=== PATIENT | male | born 1945 | race Caucasian/White ===

== ENCOUNTER 2022-01-26 09:49 | Day surgery (SDC) | payer OTHER ==
--- NOTE | 2022-01-22 15:25 | RAD REPORT ---
EXAM DESCRIPTION: RAD - Chest Pa And Lat (2 Views) - 01/22/2022 3:17 pm CLINICAL HISTORY: pre op pending TURBT Chest pain. COMPARISON: Chest Pa And Lat (2 Views) dated 02/20/2020; Chest Pa And Lat (2 Views) dated 12/06/2016; C hest Pa And Lat (2 Views) dated 03/15/2016 FINDINGS: Right hemidiaphragm is elevated, chronic. Mild atelectasis seen in the right lung base. Th e lungs are otherwise grossly clear. The heart is normal in size. Sternotomy wires.
[2022-01-22 16:21] LABS: Absolute Lymphocytes (CBC) 1.5 K/uL (0.7-4.9); Hematocrit 47.5 % (39.6-49.0); MPV 10.3 fL (7.6-11.3); RBC Red Blood Cell Count 5.11 M/uL (4.33-5.43)
[2022-01-22 16:23] LABS: Protime INR 0.9
[2022-01-22 16:29] LABS: Potassium 4.4 mmol/L (3.5-5.1)
[~2022-01-26 09:49] MED LIST: GEMCITABINE HCL 26.3 ML IVPB ONE
[2022-01-26] MEDS ORDERED: CEFAZOLIN SODIUM 1 GM/VIAL ONE (10:23)
[2022-01-26] MEDS ORDERED: Ringers Lactate 1,000 ML IV ONE (10:23)
[2022-01-26] MEDS ORDERED: ACETAMINOPHEN 500 MG TAB ONE (10:45)
[2022-01-26] MEDS ORDERED: propofoL 200 MG/20 ML VIAL IV ONE (11:57)
[2022-01-26] MEDS ORDERED: FENTANYL CITR 100 MCG/2 ML ONE (11:57)
[2022-01-26] MEDS ORDERED: ONDANSETRON 4 MG/2 ML VIAL ONE (11:59)
[2022-01-26] MEDS ORDERED: LIDOCAINE 1% MPF 5 ML VIAL ONE (11:59)
[2022-01-26] MEDS ORDERED: GLYCOPYRROLATE 0.2 MG/ML SYR ONE (13:10)
[2022-01-26] MEDS ORDERED: EPHEDRINE SULF 50 MG/ML VIAL ONE (13:10)
[2022-01-26] MEDS ORDERED: OPIUM/BELLADONNA SUPPOS (30-16.2 MG) PR ONE (13:49)
[2022-01-26] MEDS ORDERED: TRAMADOL 37.5mg/APAP 325mg PER TAB PO ONE (13:49)
[2022-01-26] MEDS: LIDOCAINE JELLY 2% 5 ML SYRINGE TOP ONE ×2 (14:52→15:29)
[2022-01-26] MEDS ORDERED: LIDOCAINE JELLY 2% 5 ML SYRINGE TOP ONE (15:29)
[2022-01-26 16:00] VITALS: BP 159/64; TEMP 96.4; O2SAT 95
== END 2022-01-26 16:42 | disposition home or self-care (01) ==
LOC: OR 09:49
PROVIDERS: ATTEND Urology
PROC: 3E0K705 Introduction of Other Antineoplastic into Genitourinary Tract, Via Natural or Artificial Opening (ICD-10-PCS; 2022-01-26)
PROC: 0TBB8ZX Excision of Bladder, Via Natural or Artificial Opening Endoscopic, Diagnostic (ICD-10-PCS; principal; 2022-01-26 11:45)
DX: C67.9 Malignant neoplasm of bladder, unspecified (principal); R31.0 Gross hematuria; N40.1 Benign prostatic hyperplasia with lower urinary tract symptoms; Z85.51 Personal history of malignant neoplasm of bladder; I10 Essential (primary) hypertension; N18.9 Chronic kidney disease, unspecified; Z20.822 Contact with and (suspected) exposure to COVID-19
CPT/HCPCS: 87088; 85025; 87086; 80048; 36415; 85610; 88307; 71046; 52234; 51720; U0003; J2704; J3010; J9201 ×2; J7120; J2405; J0690; 88305

== ENCOUNTER 2023-03-22 08:16 | Day surgery (SDC) | payer OTHER ==
--- NOTE | 2023-03-17 14:52 | RAD REPORT ---
EXAM DESCRIPTION: RAD - Chest Pa And Lat (2 Views) - 03/17/2023 2:38 pm CLINICAL HISTORY: pre op for surgery, htn, quadruple heart bypass COMPARISON: Chest Pa And Lat (2 Views) dated 01/22/2022; Chest Pa And Lat (2 Views) dated 02/20/2020; Ch est Pa And Lat (2 Views) dated 12/06/2016; Chest Pa And Lat (2 Views) dated 03/15/2016 FINDINGS: Lines: None. Lungs: No evidence of edema or pneumonia. Chronically elevated right hemidiaphragm. Pleural: No significant pleural effusions or pneumothorax. Cardiac: The heart size is within normal limits. Mediastinum: Within normal limits. Bones: No acute fractures. Sternotomy. Other: None IMPRESSION: Chronic elevation of the right hemidiaphragm. No new or acute process otherwise identifi ed.
[2023-03-17 15:47] LABS: Hematocrit 48.3 % (39.6-49.0); Lymphocytes % 26.7 % (15.3-44.8); MCV 93.2 fL (80-100); MPV 10.2 fL (7.6-11.3); Platelets 152 thou/uL (152-406); RBC Red Blood Cell Count 5.18 M/uL (4.33-5.43)
[2023-03-17 16:11] LABS: Albumin 3.9 g/dL (3.4-5.0); Bilirubin Total 0.5 mg/dL (0.2-1.0); Potassium 4.6 mEq/L (3.5-5.1); Protein, Total 7.6 g/dL (6.4-8.2)
[2023-03-17 16:51] LABS: Protime INR 0.8
--- NOTE | 2023-03-18 13:26 | EKG ---
Test Date: 2023-03-17 Test Time: 14:41:44 Clerk Analyst: KRYSTIN MEASUREMENT RESULTS: Intervals: Rate: 80 CO: 266 QRSD: 84 QT: 370 QTc: 426 [place]: P: CO: 266 QRS: 9 T: 81 INTERPRETIVE STATEMENTS: Sinus rhythm with 1st degree AV block Otherwise normal ECG Compared to ECG 02/20/2020 10:58:00 First degree AV block now present Atrial premature complex(es) no longer present Electronically Signed On 03-18-23 13:24:31 CDT by Jake Lockett
[2023-03-22] MEDS ORDERED: Ringers Lactate 1,000 ML IV ONE ×2 (08:53→14:17)
[2023-03-22] MEDS ORDERED: AMPICILLIN SODIUM 2 GM/VIAL VIAL ONE (09:03)
[2023-03-22] MEDS ORDERED: GENTAMICIN 100 MG/100 ML BAG 100 ML IV ONE (09:05)
[2023-03-22] MEDS ORDERED: FENTANYL CITR 100 MCG/2 ML ONE ×2 (10:36→12:00)
[2023-03-22] MEDS ORDERED: LIDOCAINE 1% MPF 5 ML VIAL ONE (10:36)
[2023-03-22] MEDS ORDERED: propofoL 200 MG/20 ML VIAL IV ONE (10:36)
[2023-03-22] MEDS ORDERED: ROCURONIUM 50 MG/5 ML VIAL IV ONE (10:38)
[2023-03-22] MEDS ORDERED: EPHEDRINE SULF 50 MG/ML VIAL ONE (11:16)
[2023-03-22] MEDS ORDERED: dexAMETHasone 10 MG/ML VIAL ONE (11:47)
[2023-03-22] MEDS ORDERED: ONDANSETRON 4 MG/2 ML VIAL ONE (11:47)
[2023-03-22] MEDS ORDERED: GLYCOPYRROLATE 0.2 MG/ML SYR ONE ×2 (12:18→13:42)
[2023-03-22] MEDS ORDERED: NEOSTIGMINE 1 MG/ML -10 ML VIAL ONE (12:19)
[2023-03-22] MEDS ORDERED: NS 0.9% VIAL 10 ML ONE (13:42)
[2023-03-22] MEDS ORDERED: SUGAMMADEX SODIUM 200 MG/2 ML VIAL IV ONE (13:49)
[2023-03-22] MEDS ORDERED: TRAMADOL 37.5mg/APAP 325mg PER TAB PO ONE (14:06)
[2023-03-22] MEDS ORDERED: PHENAZOPYRIDINE 100MG TAB PO PRN (14:07)
[2023-03-22 14:43] VITALS: BP 158/77; TEMP 97.1; O2SAT 97
[2023-03-22] MEDS ORDERED: PHENAZOPYRIDINE 100MG TAB PO ONE (15:01)
--- NOTE | 2023-03-22 18:57 | OP ---
Surgeon: PEDRO PABLO BEAVER Preoperative Diagnoses: 1.Erythematous bladder lesion. 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 3.BPH with lower urinary tract obstruction and symptoms. Postoperative Diagnoses: 1.Erythematous bladder lesion. 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 3.BPH with lower urinary tract obstruction and symptoms. Principal Procedures: 1.Cystoscopy with bladder biopsies and fulguration. 2.Bipolar transurethral resection of the prostate. Indication For Procedure: Mr. 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 Subsequent followup revealed the presence of an erythematous patch, which was biopsied and revealed CIS. He received an induction course of BCG and presents today for restaging of his bladder cancer. He also had significant obstructive LUTS due to BPH refractory to Flomax plus finasteride that he pro s been on for 5-6 years. As a result, he wished to proceed with surgical management of his obstructi on if possible, and we agreed that if the frozen section pathology of his bladder biopsy was nonsuspi cious, we would proceed with the TURP, as the area of erythema noted in the bladder was in the region of prior biopsy/resection site scar where inflammatory changes frequently seen. Procedure In Detail: The patient was consented in the preoperative holding area before being transfe rred to the operative suite where general anesthesia was induced. He was given ampicillin 2 g and ge ntamicin 100 mg IV antimicrobial prophylaxis and pneumo boots were provided for DVT prophylaxis. He was placed in the lithotomy position, padded and secured to the table appropriately after general ane sthesia was induced. His genitalia were prepped with Hibiclens and he was draped in standard fashion . The case was begun using a 22-Belgian rigid cystoscope to traverse the urethra and into the bladder with ease. The significant extended prostatic urethral length as well as interdigitating lateral lo bar hypertrophy was again noted. Within the bladder, no other papillary mucosal lesions, foreign bod ies or stones were noted, and the area of erythema previously observed in the right lateral wall just lateral to the right ureteral orifice where a prior biopsy/resection had been undertaken was still n oted to be somewhat erythematous. As a result, I used cold cup biopsy forceps and sterile water to b iopsy a portion of that erythematous tissue and sent it for frozen section analysis. I then biopsied additional areas essentially resecting the erythematous patch observed and sent that separately as t issue for permanent analysis in formalin. We then awaited the results of the frozen section patholog y with the caveat of them being a very limited analysis since frozen section of the bladder biopsies are not typically performed, with the disclaimer of the potential for missed diagnosis in this case, once the frozen section pathology returned negative for suspicious signs of malignancy though a great degree of artifact was seen secondary to the frozen section methodology, I then proceeded with bipol ar TURP. As a result, I utilized urethral sounds to dilate his meatus and fossa navicularis to 28-Belgian. I t hen placed the 26-Belgian bipolar resectoscope with the visual obturator through his urethra and into his bladder with ease. I then began resection of the prostatic urethra starting with some scar tissu e at the bladder neck observed from prior resection and then continued the resection of the significa nt residual adenoma existing from the apex all the way essentially to the bladder neck interdigitatin g throughout. I thus resected the median bar down to the level of the verumontanum and continued the resection initially with the left lateral lobe at the bladder neck region and mid gland region exten ding to the anterior zone of the prostate at the bladder neck and mid zone region. I similarly resec radha the similar component on the right side at the bladder neck in mid gland region extending from po sterior to anterior. I then continued the resection from the mid gland into the apex on the left felicia e and then similarly on the right side from posterior to anterior. Continued resection was performed to remove the interdigitating adenoma until it was no longer interdigitating particularly at the ape x. I then continued the resection of the prostatic fossa in the mid gland in order to ensure a widel y patent channel evident from the verumontanum into the bladder neck. After extensive resection was performed with fulguration at multiple steps along the way because the patient was somewhat oozy due to significant inflammatory change observed within his prostate and some areas of comedo-necrosis or potentially microabscesses, which I unroofed, I ensured to Ellik evacuate all prostate chips from wit hin his bladder or remove them under direct vision. I then resected additionally with the bladder co mpletely decompressed and the prostate fossa collapsed in order to ensure lack of significant residua l adenoma. Once a nice continuous channel was observed, the bladder completely decompressed and the prostatic fossa was completely hemostatic with the bladder decompressed and no fluid inflow, I then e nsured the ureteral orifices were intact, which they were, and that all prostate chips had been remov ed before then back-filling his bladder and removing the resectoscope to ensure no chips remained wit hin the bulbar and pendulous urethra. Once the scope was removed, I then utilized a catheter guide t o pass a 24-Belgian 3-way Zimmer catheter with ease into his bladder, and I placed 45 cc of sterile valentin er in the balloon. The patient was taken out of the lithotomy position, and the catheter was placed to moderate traction and very slow drip CBI with normal saline was initiated and the efflux of urine was completely clear. Of note, I irrigated the catheter before connecting it to CBI to ensure no sig nificant bleeding or tissue left within his bladder, and there was none. As a result, the patient wa s then awakened from general anesthesia, transferred to a stretcher, and then transferred to the [facility] very room in good condition. Complications: None. Discharge Disposition: I would like for him to keep the urethral Zimmer catheter through the weekend and he may undergo a voiding trial on Tuesday in the office once I am back in town. Of note, there w as a bit of a trough that was created posteriorly that may make placement of a standard straight uret hral Zimmer catheter difficult; hence, my use of a catheter guide earlier. As a result, if he fails t he voiding trial, he would require placement of at least a 20-Belgian coude tipped catheter to ensure to navigate that live appropriately. Alternatively, he may require cystoscopy and catheter placement over a wire. Subsequent followup should then be established with me in about 1-2 weeks' time to dis cuss the results of the pathology of the biopsy and prostate chips. WR/MODL Voice ID: [id number] Report ID: [id number]
== END 2023-03-22 15:57 | disposition home or self-care (01) ==
LOC: OR 08:16
PROVIDERS: ATTEND Urology
PROC: 0TBB8ZX Excision of Bladder, Via Natural or Artificial Opening Endoscopic, Diagnostic (ICD-10-PCS; 2023-03-22)
PROC: 0VT08ZZ Resection of Prostate, Via Natural or Artificial Opening Endoscopic (ICD-10-PCS; principal; 2023-03-22 10:00)
DX: N32.9 Bladder disorder, unspecified (principal); D09.0 Carcinoma in situ of bladder; N40.1 Benign prostatic hyperplasia with lower urinary tract symptoms
CPT/HCPCS: 93005; 87088; 85025; 87086; 36415; 85610; 88331; 88305 ×2; 80053; 71046; 52601; 52204; A4216; J1580; J2704; J2710; J2001; J3010 ×2; J1100; J2405; J0290; J7120 ×2

== ENCOUNTER 2024-07-17 08:41 | Day surgery (SDC) | payer OTHER ==
--- NOTE | 2024-07-12 12:03 | RAD REPORT ---
EXAMINATION: TWO VIEW CHEST XR CLINICAL INDICATION: Male, 79 years old. [facility] pre op for day surgery. Hypertension. Sequelae of coronary bypass TECHNIQUE: 2 view radiographs of the chest were performed. COMPARISON: 03/17/2023 FINDINGS: The lungs again show right basilar opacification with right hemidiaphragm elevation, findings which m ay relate to atelectasis, with or without a chronic right subpulmonic effusion. No pneumothorax or sizable effusion. The heart is normal in size. Mediastinal contours are unchanged, with sequelae of C ABG. IMPRESSION: No acute findings. Stable findings as above.
[2024-07-12 12:10] LABS: PT Prothrombin Time 9.8 SECONDS (9.4-12.5); Protime INR 0.87
[2024-07-12 12:17] LABS: Absolute Eosinophils 0.2 K/uL (0-0.5); Absolute Lymphocytes (CBC) 1.3 K/uL (0.7-4.9); Absolute Monocytes 0.7 K/uL (0.1-1.3); Absolute Neutrophil 4.8 K/uL (1.8-8.0); Basophils % 0.4 % (0-1.3); Eosinophils % 3.1 % (0-4.4); Hematocrit 46.7 % (39.6-49.0); Hemoglobin 15.2 g/dL (13.6-17.9); Lymphocytes % 18.9 % (15.3-44.8); MCH 31.4 pg (27.0-35.0); MCHC 32.5 g/dL (32.0-36.0); MCV 96.5 fL (80-100); MPV 11.1 fL (7.6-11.3); Monocytes % 10.1 % (3.3-12.3); Neutrophils % 67.5 % (41.7-73.7); Platelets 165 thou/uL (152-406); RBC Red Blood Cell Count 4.84 M/uL (4.33-5.43); Red Cell Distribution Width 13.8 % (12.1-15.2)
[2024-07-12 12:20] LABS: Anion Gap 9.4 mEq/L (5.0-15.0); Potassium 4.4 mEq/L (3.5-5.1)
--- NOTE | 2024-07-16 12:09 | EKG ---
Test Date: 2024-07-12 Test Time: 12:20:38 Window Tinter: EULOGIO MEASUREMENT RESULTS: Intervals: Rate: 66 SD: 224 QRSD: 84 QT: 406 QTc: 425 [place]: P: SD: 224 QRS: 11 T: 95 INTERPRETIVE STATEMENTS: Sinus rhythm with 1st degree AV block Nonspecific T wave abnormality Abnormal ECG Compared to ECG 03/17/2023 14:41:44 T-wave abnormality now present Electronically Signed On 07-16-24 12:03:32 GREEN BELT by Ovidio Moore
[2024-07-17] MEDS: Ringers Lactate 1,000 ML IV ONE (09:25)
[2024-07-17] MEDS ORDERED: ONDANSETRON 4 MG/2 ML VIAL ONE (10:52)
[2024-07-17] MEDS ORDERED: FENTANYL CITR 100 MCG/2 ML ONE (10:52)
[2024-07-17] MEDS ORDERED: propofoL 200 MG/20 ML VIAL IV ONE (10:52)
[2024-07-17] MEDS ORDERED: SUGAMMADEX SODIUM 200 MG/2 ML VIAL IV ONE (11:14)
[2024-07-17] MEDS ORDERED: ROCURONIUM 50 MG/5 ML VIAL IV ONE (11:30)
[2024-07-17] MEDS ORDERED: GLYCOPYRROLATE 0.2 MG/ML SYR ONE (11:57)
[2024-07-17] MEDS: Gentamicin Inj 240 MG in NA CHLORIDE 0.9% 100 ML IV ONE (11:58)
[2024-07-17] MEDS: AMPICILLIN SODIUM 2 GM/VIAL VIAL ONE (12:02)
[2024-07-17] MEDS ORDERED: EPHEDRINE SULF 50 MG/ML VIAL ONE (12:09)
[2024-07-17] MEDS: TRAMADOL 37.5mg/APAP 325mg PER TAB PO ONE (13:03)
--- NOTE | 2024-07-17 13:19 | P.OP ---
Date of Service: 07/17/24 Preoperative diagnoses: Bladder lesion History of CIS of the bladder Post induction BCG on maintenance Left extratesticular/epididymal mass Postoperative diagnoses: Bladder lesion History of CIS of the bladder Post induction BCG on maintenance Left extratesticular/epididymal mass Principal procedures: Cystoscopy with bladder biopsies and fulguration Scrotal examination Indication for procedure: 79-year-old gentleman with history of subtle erythematous patch of the bladder, who underwent clinic based biopsy and fulguration, which revealed CIS of the bladder. He has subsequently undergone an induction course of BCG, which he tolerated well, and he continues on maintenance therapy. Upper tract imaging has been unremarkable and voided cytology negative for malignant cells. However, in the region of prior resection/biopsies, there was an area of subtle mucosal change at the periphery, slightly suspicious. Procedure note: The patient was consented in the preoperative holding area before being transferred to the operative suite where general anesthesia was induced. He was given ampicillin 2 g and gentamicin 240 mg IV antimicrobial prophylaxis, and pneumoboots were provided for DVT prophylaxis. He was placed in the lithotomy position, padded and secured to the table appropriately. His genitalia was prepped with Hibiclens and he was draped in standard fashion. The case was begun using a 22 Armenian rigid cystoscope to traverse the urethra and into the bladder with ease. The bladder was surveyed in its entirety. No papillary mucosal lesions, foreign bodies, or stones were noted throughout. In the region of the right lateral wall where prior scar from prior resections was observed, at the periphery of the scar, there was subtle mucosal change that was slightly suspicious. As a result, I utilized cold cup biopsy forceps to take quadrant samples of the suspicious mucosa around the periphery of the scarred tissue lateral to the right ureteral orifice. I then utilized a cold cup biopsy forcep and sterile water to fulgurate the base of the biopsy sites with a cautery setting of 30. I did this and then decompressed his bladder to ensure adequacy of hemostasis further fulgurating as necessary. I then resurveyed the bladder for any sign of subtle mucosal change that would merit a biopsy before ulti mately decompressing his bladder and removing the cystoscope. He was then taken out of the lithotomy position, awakened from general anesthesia, transferred to a stretcher, and then transferred to the recovery room in good condition. Examination: Patient with known extratesticular epididymal mass observed on ultrasound. He felt that he could no longer appreciate the mass lesion, but I still appreciated at present within the tail of the epididymis on the left measuring approximately 2.5 cm in diameter and firm. The testis itself was uninvolved, but there was a cyst also palpable within the epididymis. Complications: None Discharge disposition: Follow-up should be established in about 1 to 2 weeks time to discuss the results of the pathology and next steps in management. He is scheduled for ultrasound repeat of his scrotum in August to reevaluate the left epididymal tail lesion persistently appreciable. I did consult with his daughters who had several questions in the waiting room about both his diagnosis of CIS, the BCG immunotherapy provided, and the methodology for today's operative evaluation as well as reevaluation of the left hemiscrotal lesion. I explained that for a man his age, the likelihood of any aggressive extratesticular mass was low, but that is the reason for the monitoring so we can determine if resection was justifiable.
[2024-07-17] MEDS: PHENAZOPYRIDINE 100MG TAB PO ONE (13:30)
[2024-07-17] MEDS ORDERED: PHENAZOPYRIDINE 100MG TAB PO ONE (13:36)
[2024-07-17] MEDS: TRAMADOL HCL 50 MG TAB ONE (13:36)
[2024-07-17 14:03] VITALS: BP 163/74; O2SAT 98
[2024-07-17] MEDS: NA CHLORIDE 0.9% 500 ML ONE (16:15)
[2024-07-17] MEDS ORDERED: LIDOCAINE JELLY 2% 5 ML SYRINGE TOP ONE (17:30)
[2024-07-17 18:19] VITALS: TEMP 97.6
== END 2024-07-17 18:10 | disposition home or self-care (01) ==
LOC: OR 08:41
PROVIDERS: ATTEND Urology
PROC: 0TBB8ZX Excision of Bladder, Via Natural or Artificial Opening Endoscopic, Diagnostic (ICD-10-PCS; principal; 2024-07-17 11:00)
DX: D09.0 Carcinoma in situ of bladder (principal); N32.9 Bladder disorder, unspecified; Z86.008 Personal history of in-situ neoplasm of other site; N50.89 Other specified disorders of the male genital organs
CPT/HCPCS: 52204; 93005; 87088; 85025; 87086; 80048; 36415; 85610; 88305; 71046; J2704; J1580; J3010; J2405; J0290; J7120; J7040

== ENCOUNTER 2024-12-04 07:50 | Day surgery (SDC) | payer OTHER ==
[2024-11-27 13:39] LABS: Absolute Basophils 0.1 K/uL (0-0.5); Absolute Eosinophils 0.2 K/uL (0-0.5); Absolute Lymphocytes (CBC) 2.2 K/uL (0.7-4.9); Absolute Neutrophil 5.9 K/uL (1.8-8.0); Basophils % 0.6 % (0-1.3); Eosinophils % 2.5 % (0-4.4); Hemoglobin 14.7 g/dL (13.6-17.9); Lymphocytes % 23.1 % (15.3-44.8); MCHC 35.1 g/dL (32.0-36.0); MCV 96.9 fL (80-100); MPV 10.7 fL (7.6-11.3); Monocytes % 10.8 % (3.3-12.3); Platelets 188 thou/uL (152-406); RBC Red Blood Cell Count 4.33 M/uL (4.33-5.43); Red Cell Distribution Width 15.8 % (12.1-15.2)
[2024-11-27 13:41] LABS: PT Prothrombin Time 10.1 SECONDS (10-13.0); Protime INR 0.88
[2024-11-27 13:47] LABS: Anion Gap 9.4 mEq/L (5.0-15.0); Potassium 4.4 mEq/L (3.5-5.1)
[2024-12-04] MEDS: Ringers Lactate 1,000 ML IV ONE (08:20)
[2024-12-04] MEDS ORDERED: ONDANSETRON 4 MG/2 ML VIAL ONE (08:29)
[2024-12-04] MEDS ORDERED: FENTANYL CITR 100 MCG/2 ML ONE (08:29)
[2024-12-04] MEDS ORDERED: propofoL 200 MG/20 ML VIAL IV ONE (08:29)
[2024-12-04] MEDS ORDERED: NEOSTIGMINE 1 MG/ML -10 ML VIAL ONE (08:31)
[2024-12-04] MEDS ORDERED: LIDOCAINE 1% MPF 5 ML VIAL ONE (08:32)
[2024-12-04] MEDS ORDERED: EPHEDRINE SULF 50 MG/ML VIAL ONE (09:09)
[2024-12-04] MEDS ORDERED: dexAMETHasone 10 MG/ML VIAL ONE (09:11)
[2024-12-04] MEDS: CEFAZOLIN SODIUM 2 GM/VIAL ONE (09:15)
[2024-12-04] MEDS ORDERED: GLYCOPYRROLATE 0.2 MG/ML SYR ONE (09:42)
[2024-12-04] MEDS ORDERED: TRAMADOL 37.5mg/APAP 325mg PER TAB PO ONE (10:27)
[2024-12-04] MEDS ORDERED: PHENAZOPYRIDINE 100MG TAB PO ONE (10:27)
[2024-12-04 11:23] VITALS: BP 161/72; TEMP 97.1; O2SAT 100
--- NOTE | 2024-12-04 13:13 | P.OP ---
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 This was found to be CIS, and he received an induction course of BCG. He subsequently continued with the maintenance treatment, but on follow-up evaluation was found to have residual erythematous patch within his bladder. This was biopsied and found to be persistence of the CIS, now BCG refractory. He subsequently was counseled by myself and [facility] with Beck Garcia, and we both agreed that he would be a good candidate for sequential intravesical gemcitabine docetaxel chemotherapy. He underwent this induction course which was completed last month. Procedure note: The patient was consented in the preoperative holding area before being transferred to the operative suite where general anesthesia was induced. He was given Ancef 2 g IV antimicrobial prophylaxis, and pneumoboots were provided for DVT prophylaxis. He was placed in the lithotomy position, padded and secured to the table appropriately. His genitalia was prepped with Hibiclens and he was draped in standard fashion. The case was begun using a 22 English rigid cystoscope to traverse the urethra and into the bladder with relative ease. There was evidence of prior resection of the prostate, but no erythematous patches or papillary mucosal lesions were noted within the prostatic urethra. Upon entry into the bladder, there were no papillary mucosal lesions, foreign bodies, or stones. The right ureteral orifice had the appearance of prior resection and the left ureteral orifice was orthotopic in location. There was evidence of multiple prior biopsy sites, largely involving the right lateral wall, and around some of those biopsy sites, the mucosa was slightly erythemato us in appearance, typical of postbiopsy site change. No other areas of suspicion were seen throughout the bladder. A 70 degree lens was used to survey the bladder neck. I then utilized a cold cup biopsy forceps to perform random biopsies of the following sites: Trigone, posterior, dome, and left lateral wall. Biopsies of the right lateral wall were done specifically targeting the erythematous mucosa around the prior resection site scars. This was all sent for pathologic analysis. I then utilized a Bugbee electrode with the cautery setting of 30 to fulgurate the periphery and the base of each of these biopsy sites. Once hemostatic with the bladder completely decompressed, the case was concluded. I remove the cystoscope, took the patient out of the lithotomy position, transferred him to a stretcher, and then he was transferred to the recovery room in good condition. Complications: None Discharge disposition: Follow-up should be established in 1 to 2 weeks to discuss the pathology of the resection. At that time, we also will arrange imaging in follow-up of his known renal mass. Subsequent continuation of monthly maintenance intravesical sequential gemcitabine docetaxel chemotherapy will be discussed, with the value determined based on the pathology of the biopsies taken today.
== END 2024-12-04 11:15 | disposition home or self-care (01) ==
LOC: OR 07:50
PROVIDERS: ATTEND Urology
PROC: 0TBB8ZX Excision of Bladder, Via Natural or Artificial Opening Endoscopic, Diagnostic (ICD-10-PCS; principal; 2024-12-04 09:30)
DX: C67.9 Malignant neoplasm of bladder, unspecified (principal)
CPT/HCPCS: 87088; 85025; 87086; 80048; 36415; 85610; 88305; 52204; J2704; J2003; J3010; J1100; J2405; J7120; J2710

== ENCOUNTER 2025-01-08 07:14 | Day surgery (SDC) | payer OTHER ==
[2025-01-08 07:42] LABS: Specific Gravity 1.013 (1.005-1.030); Sqamous Epithelial <5 /HPF (None Seen); Urine Bacteria None Seen /HPF (<20); Urine Bilirubin NEGATIVE (Negative); Urine Blood Negative (Negative); Urine Clarity Turbid (Clear); Urine Color Light-Yellow (Yellow); Urine Culture Reflex Order REFLEXED; Urine Glucose NEGATIVE (Negative); Urine Ketones NEGATIVE (Negative); Urine Microscopic Reflex YN ORDER UMIC; Urine Mucus Slight /HPF (None Seen); Urine Nitrite NEGATIVE (Negative); Urine Protein 2+ (Negative); Urine RBC <5 /HPF (None Seen); Urine Urobilinogen Normal (Normal); Urine WBC <5 /HPF (<5); Urine pH 5.5 (5.0-7.0)
[2025-01-08] MEDS: OXYBUTYNIN ER 5 MG TAB PO ONE (07:45)
[2025-01-08] MEDS: DIAZEPAM 5 MG TABLET ONE (07:55)
[2025-01-08] MEDS ORDERED: DOCEtaxeL 37.5 MG in NA CHLORIDE 0.9% 48.125 ML IS ONE (08:00)
[2025-01-08] MEDS ORDERED: Gemcitabine 26.3 ML IS ONE (08:00)
[2025-01-08] MEDS: LIDOCAINE JELLY 2% 5 ML SYRINGE TOP ONE (08:19)
[2025-01-08 09:30] VITALS: BP 153/72; O2SAT 94; BMI 35.4
[2025-01-08 16:13] VITALS: TEMP 98
--- NOTE | 2025-01-08 19:39 | P.PN ---
Date of Service: 01/08/25 Preprocedure diagnoses: BCG refractory CIS of the bladder h/o urothelial carcinoma the bladder Postprocedure diagnoses: BCG refractory CIS of the bladder h/o urothelial carcinoma the bladder Principal procedures: Insertion of urethral Zimmer catheter Instillation of sequential intravesical chemotherapy -gemcitabine 1 g and 25 cc NS followed by docetaxel 37.5 mg in 50 cc sterile H2O -monthly maintenance therapy Indication for procedure: 79-year-old gentleman with history of papillary urothelial carcinoma the bladder who presented to me for evaluation having been lost to follow-up for period of time. Cystoscopy revealed the presence of an erythematous patch on the right lateral wall of the bladder, which I biopsied in the office and it was revealed to be CIS. He thus underwent an induction course of BCG with follow-up bladder biopsies performed that were benign. Over the course of the next 6 months after the first maintenance BCG had been administered, he had persistence of erythematous patches on the bladder, which were subsequently biopsied and revealed to be persistent CIS. He sought second opinion consultation with [facility] and Dr. Beck Garcia, who agreed with my recommendation for sequential intravesical gemcitabine docetaxel chemotherapy. I also recommended medical oncology consultation to consider adjuvant Keytruda, but Dr. Garcia disagreed with that recommendation, apparently suggesting some adverse effects he had observed in his patient population anecdotally. I recommended to the patient to continue to seek medical oncology consultation to consider the role for the Keytruda, not strongly recommending it as definitively needed at this time. He did well with the intravesical chemotherapy treatment with no issues or complications other than the notation of significant fatigue that has been progressively increasing in the immediate post treatment timeframe. It has not been severe enough for him to want to discontinue the treatments so far. Induction course completed a month ago, and he presents for continuation of monthly maintenance. We discussed the more recent data that would suggest greater durability of response with 2 years of maintenance instead of the 1 year initially discussed/recommended. Procedure note: The patient was consented before being placed supine in the hospital stretcher. His genitalia was prepped with Betadine and draped in standard fashion. Lidocaine Uro-Jet was applied intraurethrally before an 18 Mozambican Zimmer catheter was placed via his urethra into his bladder with ease. His bladder was decompressed of clear yellow urine, and urinalysis was performed and benign in appearance. He was given a dose of Valium 5 mg as well as oxybutynin 10 mg extended release for bladder stabilization. I placed towels to absorb any accidental leakage of the chemotherapy around his genitalia and draped him from head to toe with the catheter brought through a hiatus in the drapery. A face shield was applied for splash guard protection. After his bladder was completely decompressed, I then retrograde instilled the 25 cc of gemcitabine 1 g into his bladder. I placed a [place] clamp on the catheter hub to keep the chemotherapy in situ, and I associated a leg bag for ease of subsequent decompression. He was allowed to keep this in situ over the course of the next 90 minutes, before it was decompressed into an associated leg bag. This time, he had a slight degree of leakage owing to increased stimulation trying to hold it for the full 90 minutes. I then retrograde instilled 37.5 mg docetaxel and 50 cc sterile water into his bladder and again clamped the Zimmer catheter to keep it in situ for the next 120 minutes. He did rotate from left to right and on his back, but did not turn onto his stomach per protocol. After this, it was decompressed into the associated leg bag, and the catheter was removed. He was then discharged from the day surgery area in good condition having had no adverse reaction or complication noted. Complications: None Discharge disposition: He will likely continue with once monthly maintenance sequential gemcitabine docetaxel intravesical chemotherapy targeting 2 years, until October 2026. Cystoscopy as an outpatient in 3 months from his November operative excursion for cystoscopy with bladder biopsies - February 2025.
== END 2025-01-08 14:19 | disposition home or self-care (01) ==
LOC: DS 07:14
PROVIDERS: ATTEND Urology
PROC: 3E0K705 Introduction of Other Antineoplastic into Genitourinary Tract, Via Natural or Artificial Opening (ICD-10-PCS; principal; 2025-01-08)
DX: C67.9 Malignant neoplasm of bladder, unspecified (principal); Z86.008 Personal history of in-situ neoplasm of other site; Z88.5 Allergy status to narcotic agent
CPT/HCPCS: 87088; 81001; 87086; 51720 ×2; J9171; J9201

== ENCOUNTER 2025-04-09 08:43 | Day surgery (SDC) | payer OTHER ==
[2025-04-01 11:53] LABS: Sqamous Epithelial <5 /HPF (None Seen); Urine Culture Reflex Order NOT NEEDED; Urine Microscopic Reflex YN ORDER UMIC; Urine Yeast (Budding) Trace /HPF (None Seen)
[2025-04-08 12:06] LABS: Sqamous Epithelial <5 /HPF (None Seen); Urine Culture Reflex Order REFLEXED; Urine Microscopic Reflex YN ORDER UMIC; Urine WBC Clump Rare /HPF (None Seen)
[~2025-04-09 08:43] MED LIST changes: +DOCEtaxeL 37.5 MG in NA CHLORIDE 0.9% 48.125 ML IS ONE; -GEMCITABINE HCL 26.3 ML IVPB ONE; +Gemcitabine 26.3 ML IS ONE
[2025-04-09] MEDS: OXYBUTYNIN ER 5 MG TAB PO ONE (08:51)
[2025-04-09] MEDS: DIAZEPAM 5 MG TABLET ONE (08:59)
[2025-04-09] MEDS: LIDOCAINE JELLY 2% 5 ML SYRINGE TOP ONE (09:22)
[2025-04-09 09:25] VITALS: BMI 35.4
[2025-04-09 09:27] VITALS: BP 168/73; TEMP 99.3; O2SAT 97
--- NOTE | 2025-04-09 17:59 | P.PN ---
Date of Service: 04/09/25 Preprocedure diagnoses: BCG refractory CIS of the bladder h/o urothelial carcinoma the bladder Postprocedure diagnoses: BCG refractory CIS of the bladder h/o urothelial carcinoma the bladder Principal procedures: Insertion of urethral Zimmer catheter Instillation of sequential intravesical chemotherapy -gemcitabine 1 g and 25 cc NS followed by docetaxel 37.5 mg in 50 cc sterile H2O -monthly maintenance therapy Indication for procedure: 79-year-old gentleman with history of papillary urothelial carcinoma the bladder who presented to me for evaluation having been lost to follow-up for period of time. Cystoscopy revealed the presence of an erythematous patch on the right lateral wall of the bladder, which I biopsied in the office and it was revealed to be CIS. He thus underwent an induction course of BCG with follow-up bladder biopsies performed that were benign. Over the course of the next 6 months after the first maintenance BCG had been administered, he had persistence of erythematous patches on the bladder, which were subsequently biopsied and revealed to be persistent CIS. He sought second opinion consultation with [facility] and Dr. Beck Garcia, who agreed with my recommendation for sequential intravesical gemcitabine docetaxel chemotherapy. I also recommended medical oncology consultation to consider adjuvant Keytruda, but Dr. Garcia disagreed with that recommendation, apparently suggesting some adverse effects he had observed in his patient population anecdotally. I recommended to the patient to continue to seek medical oncology consultation to consider the role for the Keytruda, not strongly recommending it as definitively needed at this time. He did well with the intravesical chemotherapy treatment with no issues or complications other than the notation of significant fatigue that has been progressively increasing in the immediate post treatment timeframe. It has not been severe enough for him to want to discontinue the treatments so far. Induction course completed a month ago, and he presents for continuation of monthly maintenance. We discussed the more recent data that would suggest greater durability of response with 2 years of maintenance instead of the 1 year initially discussed/recommended. Procedure note: The patient was consented before being placed supine in the hospital stretcher. His genitalia was prepped with Betadine and draped in standard fashion. Lidocaine Uro-Jet was applied intraurethrally before an 18 [place] Zimmer catheter was placed via his urethra into his bladder with ease. His bladder was decompressed of clear yellow urine, and urinalysis was performed and benign in appearance. He was given a dose of Valium 5 mg as well as oxybutynin 10 mg extended release for bladder stabilization. I placed towels to absorb any accidental leakage of the chemotherapy around his genitalia and draped him from head to toe with the catheter brought through a hiatus in the drapery. A face shield was applied for splash guard protection. After his bladder was completely decompressed, I then retrograde instilled the 25 cc of gemcitabine 1 g into his bladder. I placed a [place] clamp on the catheter hub to keep the chemotherapy in situ, and I associated a leg bag for ease of subsequent decompression. He was allowed to keep this in situ targeting 90 minutes of therapy, but he was only able to hold it for about 60 minutes before experiencing some leakage. As a result, the towels were changed by nursing, and the chemotherapy was decompressed into an associated leg bag. I then retrograde instilled 37.5 mg docetaxel and 50 cc sterile water into his bladder and again clamped the Zimmer catheter to keep it in situ for the next 120 minutes. He did rotate from left to right and on his back, but did not turn onto his stomach per protocol. After this, it was decompressed into the associated leg bag, and the catheter was removed. He was then discharged from the day surgery area in good condition having had no adverse reaction or complication noted. Complications: None Discharge disposition: He will likely continue with once monthly maintenance sequential gemcitabine docetaxel intravesical chemotherapy targeting 2 years, until October 2026. Cystoscopy as an outpatient as scheduled. Follow-up voided cytology sent at the time of cystoscopy from last week.
== END 2025-04-09 15:06 | disposition home or self-care (01) ==
LOC: DS 08:43
PROVIDERS: ATTEND Urology
PROC: 3E0K705 Introduction of Other Antineoplastic into Genitourinary Tract, Via Natural or Artificial Opening (ICD-10-PCS; principal; 2025-04-09)
DX: C67.9 Malignant neoplasm of bladder, unspecified (principal); Z86.008 Personal history of in-situ neoplasm of other site
CPT/HCPCS: 87088; 81001 ×2; 87086; 51720; J9171; J9201; 87077; 87186

== ENCOUNTER 2025-06-18 06:07 | Day surgery (SDC) | payer OTHER ==
[2025-06-17 12:05] LABS: Sqamous Epithelial <5 /HPF (None Seen); Urine Culture Reflex Order NOT NEEDED; Urine Microscopic Reflex YN ORDER UMIC
[2025-06-18] MEDS: DIAZEPAM 5 MG TABLET ONE (06:20)
[2025-06-18] MEDS: OXYBUTYNIN ER 5 MG TAB PO ONE (06:20)
[2025-06-18 06:37] VITALS: BMI 34.2
[2025-06-18] MEDS ORDERED: LIDOCAINE JELLY 2% 5 ML SYRINGE TOP ONE (07:18)
[2025-06-18 07:36] VITALS: BP 129/68; TEMP 97.1; O2SAT 95
[2025-06-18] MEDS ORDERED: DOCEtaxeL 37.5 MG in NA CHLORIDE 0.9% 48.125 ML IS ONE (08:00)
[2025-06-18] MEDS ORDERED: Gemcitabine 26.3 ML IS ONE (08:00)
--- NOTE | 2025-06-18 13:50 | P.PN ---
Date of Service: 06/18/25 Preprocedure diagnoses: BCG refractory CIS of the bladder h/o urothelial carcinoma the bladder Postprocedure diagnoses: BCG refractory CIS of the bladder h/o urothelial carcinoma the bladder Principal procedures: Insertion of urethral Zimmer catheter Instillation of sequential intravesical chemotherapy -gemcitabine 1 g and 25 cc NS followed by docetaxel 37.5 mg in 50 cc sterile H2O -monthly maintenance therapy Indication for procedure: 79-year-old gentleman with history of papillary urothelial carcinoma the bladder who presented to me for evaluation having been lost to follow-up for period of time. Cystoscopy revealed the presence of an erythematous patch on the right lateral wall of the bladder, which I biopsied in the office and it was revealed to be CIS. He thus underwent an induction course of BCG with follow-up bladder biopsies performed that were benign. Over the course of the next 6 months after the first maintenance BCG had been administered, he had persistence of erythematous patches on the bladder, which were subsequently biopsied and revealed to be persistent CIS. He sought second opinion consultation with [facility] and Dr. Beck Garcia, who agreed with my recommendation for sequential intravesical gemcitabine docetaxel chemotherapy. I also recommended medical oncology consultation to consider adjuvant Keytruda, but Dr. Garcia disagreed with that recommendation, apparently suggesting some adverse effects he had observed in his patient population anecdotally. I recommended to the patient to continue to seek medical oncology consultation to consider the role for the Keytruda, not strongly recommending it as definitively needed at this time. He did well with the intravesical chemotherapy treatment with no issues or complications other than the notation of significant fatigue that has been progressively increasing in the immediate post treatment timeframe. It has not been severe enough for him to want to discontinue the treatments so far. Induction course completed a month ago, and he presents for continuation of monthly maintenance. We discussed the more recent data that would suggest greater durability of response with 2 years of maintenance instead of the 1 year initially discussed/recommended. Procedure note: The patient was consented before being placed supine in the hospital stretcher. His genitalia was prepped with Betadine and draped in standard fashion. Lidocaine Uro-Jet was applied intraurethrally before an 18 [place] Zimmer catheter was placed via his urethra into his bladder with ease. His bladder was decompressed of clear yellow urine, and urinalysis was performed and benign in appearance. He was given a dose of Valium 5 mg as well as oxybutynin 10 mg extended release for bladder stabilization. I placed towels to absorb any accidental leakage of the chemotherapy around his genitalia and draped him from head to toe with the catheter brought through a hiatus in the drapery. A face shield was applied for splash guard protection. After his bladder was completely decompressed, I then retrograde instilled the 25 cc of gemcitabine 1 g into his bladder. I placed a [place] clamp on the catheter hub to keep the chemotherapy in situ, and I associated a leg bag for ease of subsequent decompression. He was allowed to keep this in situ for 90 minutes of therapy, and he was able to maintain it the entire time before it was decompressed into the associated leg bag. I then retrograde instilled 37.5 mg docetaxel and 50 cc sterile water into his bladder and again clamped the Zimmer catheter to keep it in situ for the next 120 minutes. He did rotate from left to right and on his back, but did not turn onto his stomach per protocol. After this, it was decompressed into the associated leg bag, and the catheter was removed. He was then discharged from the day surgery area in good condition having had no adverse reaction or complication noted. Complications: None Discharge disposition: He will likely continue with once monthly maintenance sequential gemcitabine docetaxel intravesical chemotherapy targeting 2 years, until October 2026. Cystoscopy as an outpatient as scheduled.
== END 2025-06-18 12:01 | disposition home or self-care (01) ==
LOC: DS 06:07
PROVIDERS: ATTEND Urology
DX: C67.9 Malignant neoplasm of bladder, unspecified (principal); Z86.008 Personal history of in-situ neoplasm of other site; Z51.11 Encounter for antineoplastic chemotherapy
CPT/HCPCS: 81001; 51720 ×2; J9171; J9201